=== PATIENT | male | born 1970 | race Caucasian/White ===

== ENCOUNTER 2017-03-08 09:21 | Inpatient (IN) ==
--- NOTE | 2017-03-07 21:09 | Discharge Summary ---
<Alicia Melissa - Last Filed: 03/08/17 09:55> Date of Encounter: 03/08/17 - Discharge Diagnosis (1) Arthritis of knee, left Priority: Primary Status: Acute (2) Status post total knee replacement, left Priority: Primary Status: Acute (3) DMII (diabetes mellitus, type 2) Priority: Secondary Status: Chronic Qualifiers: Diabetes mellitus complication status: without complication Diabetes mellitus prison insulin use: unspecified prison insulin use status Qualified Code(s): E11.9 - Type 2 diabetes mellitus without complications (4) HTN (hypertension) Priority: Secondary Status: Chronic Qualifiers: Hypertension type: essential hypertension Qualified Code(s): I10 - Essential (primary) hypertension (5) MAXIMINO on CPAP Priority: Secondary Status: Chronic (6) Obesity Priority: Secondary Status: Chronic Qualifiers: Obesity type: unspecified obesity type Obesity classification: unspecified obesity classification Serious obesity comorbidity presence: without serious comorbidity Qualified Code(s): E66.9 - Obesity, unspecified; Z68.43 - Body mass index (BMI) 50-59.9 , adult; Z68.43 - Body mass index (BMI) 50-59.9 , adult ; Z68.43 - Body mass index (BMI) 50-59.9 , adult; Z68.43 - Body mass index (BMI ) 50-59.9 , adult - Discharge Medications Home Medications: Aspirin Enteric Coated [Aspirin EC] 325 mg PO DAILY #21 tablet. 03/07/17 [Rx] OxyCODONE Immed Rel [Roxicodone 5 MG] 5 mg PO Q6HR PRN 7 Days #28 tablet [Rx] Albuterol Sulfate [Ventolin Hfa] 2 puff IH Q4H PRN 03/08/17 [History] Atenolol/Chlorthalidone [Tenoretic 50 Tablet] 1 tab PO DAILY 03/08/17 [History] Cyclobenzaprine [Flexeril] 10 mg PO TID PRN 03/08/17 [History] Dapagliflozin Propanediol [Farxiga] 5 mg PO DAILY 03/08/17 [History] Diclofenac Sodium [Voltaren] 75 mg PO BID PRN 03/08/17 [History] EPINEPHrine [Epipen] 0.3 mg IM DAILY PRN 03/08/17 [History] Fluticasone Propionate Nasal [Flonase] 1 spray NS DAILY 03/08/17 [History] Gabapentin [Neurontin] 1,600 mg PO HS 03/08/17 [History] Gabapentin [Neurontin] 800 mg PO 0900,1200 03/08/17 [History] Lisinopril [Zestril] 20 mg PO DAILY 03/08/17 [History] Loratadine [Claritin] 10 mg PO DAILY 03/08/17 [History] Metformin HCl [Glucophage] 1,000 mg PO BID 03/08/17 [History] Montelukast [Singulair] 10 mg PO DAILY 03/08/17 [History] Omeprazole [PriLOSEC] 40 mg PO DAILY 03/08/17 [History] Potassium Chloride [K-Tab ER] 10 meq PO DAILY 03/08/17 [History] Ranitidine HCl [Zantac] 300 mg PO DAILY 03/08/17 [History] Simvastatin [Zocor] 20 mg PO HS 03/08/17 [History] Testosterone Cypionate [Depo-Testosterone] 200 mg IM Q2W 03/08/17 [History] Allergies/Adverse Reactions: 3 Allergy/AdvReac Type Severity Reaction Status Date / Time venom-honey bee Allergy Anaphylaxis Verified 03/08/17 09:43 [bee venom (honey bee)] Primary care physician: Nicki Calabrese CNP - Patient Status Disposition: Home, Self-Care Condition: Good - Discharge Instructions Follow Up With: Gorge Bell MD [Partnered Physician] - 04/07/17 4:50 pm Alicia Melissa PAC [Physician Hoisting Machine Operator] - 03/18/17 10:15 am (Also, appointment on 03/26/17 @ 10:00 AM) Nicki Calabrese CNP [Primary Care Provider] - 04/26/17 9:00 am Sergio Welch MD [Partnered Physician] - 07/07/17 9:30 am - Hospital Course Hospital course: Mr. Boswell is a 46 year old male - Time Spent with Patient Total time spent providing and/or coordinating discharge services: <Gorge Bell - Last Filed: 03/09/17 06:39> Date of Encounter: 03/09/17 Time of Encounter: 06:39 - Discharge Diagnosis (1) Arthritis of knee, left Priority: Primary Status: Chronic (2) Status post total knee replacement, left Priority: Primary Status: Acute (3) DMII (diabetes mellitus, type 2) Priority: Secondary Status: Chronic Qualifiers: Diabetes mellitus complication status: without complication Diabetes mellitus prison insulin use: unspecified prison insulin use status Qualified Code(s): E11.9 - Type 2 diabetes mellitus without complications (4) HTN (hypertension) Priority: Secondary Status: Chronic Qualifiers: Hypertension type: essential hypertension Qualified Code(s): I10 - Essential (primary) hypertension (5) MAXIMINO on CPAP Priority: Secondary Status: Chronic (6) Obesity Priority: Secondary Status: Chronic Qualifiers: Obesity type: unspecified obesity type Obesity classification: adult class 3 (BMI >= 40) Serious obesity comorbidity presence: without serious comorbidity Body mass index: BMI 50.0-59.9 Qualified Code(s): E66.9 - Obesity, unspecified; Z68.43 - Body mass index (BMI) 50-59.9 , adult; Z68.43 - Body mass index (BMI) 50-59.9 , adult; Z68.43 - Body mass index (BMI) 50-59.9 , adult; Z68.43 - Body mass index (BMI) 50-59.9 , adult Primary care physician: Nicki Calabrese CNP - Patient Status Functional capacity at discharge: uses cane/walker Overall status at discharge: patient is progressing back to baseline - Hospital Course Hospital course: Mr. Boswell is a 46 year old male Status post left total knee replacement. The patient had an uneventful postoperative course. They received antibiotics and physical therapy and were discharged in stable condition. There will follow -up in the office in 2 weeks. - Time Spent with Patient Total time spent providing and/or coordinating discharge services:
[2017-03-08] MEDS ORDERED: Clindamycin 900 MG/50 ML 900 MG/50 ML IV.SOLN IVPB ONE (10:01)
[2017-03-08] MEDS ORDERED: Albuterol 2.5 MG/3 ML NEBULIZER IH ONE (10:01)
--- NOTE | 2017-03-08 10:07 | History & Physical Report ---
Date of Encounter: 03/08/17 Time of Encounter: 10:07 24 Hour HP Update - Instructions Instructions: If the History and Physical is less than 30 days old and was completed prior to A.M. admission and or procedure and has NOT been updated on calendar day of procedure please complete this update prior to performing procedure. - Update Patient reports changes in Medical Condition: No Changes in examination, assessment, or condition: No Changes in Medication: No Preop tests/diagnostics Reviewed: Yes Surgery Remains Indicated: Yes Consent for Planned Operative Procedure(s) Verified: Yes - Pre-Operative Checklist Preoperative Checklist Indicated: No Prophylactic Antibiotic Ordered: Yes Is VTE Prophylaxis Indicated?: Yes
[2017-03-08] MEDS ORDERED: Plasma-Lyte A (PH 7.4) 1,000 ML IVC SCH ×2 (10:15→11:30)
--- NOTE | 2017-03-08 11:01 | Anesthesia Evaluation PreOp ---
Date of Encounter: 03/08/17 Time of Encounter: 11:02 - Past History Planned Operation: Left total knee Cardiac History: HTN, Hyperlipidemia Pulmonary History: Asthma, MAXIMINO Dx GAME DESIGNER/CREATIVE DIRECTOR History: Other (cervical stenosis) Other Medical History: Diabetes Type II (oral medications only), Other (BMI 55) Anesthesia History: No Prior Anesthetic Complications Alcohol Use: none Drug use: none Medications and Allergies Aspirin Enteric Coated [Aspirin EC] 325 mg PO DAILY #21 tablet. 03/07/17 [Rx] OxyCODONE Immed Rel [Roxicodone 5 MG] 5 mg PO Q6HR PRN 7 Days #28 tablet [Rx] Albuterol Sulfate [Ventolin Hfa] 2 puff IH Q4H PRN 03/08/17 [History] Atenolol/Chlorthalidone [Tenoretic 50 Tablet] 1 tab PO DAILY 03/08/17 [History] Cyclobenzaprine [Flexeril] 10 mg PO TID PRN 03/08/17 [History] Dapagliflozin Propanediol [Farxiga] 5 mg PO DAILY 03/08/17 [History] Diclofenac Sodium [Voltaren] 75 mg PO BID PRN 03/08/17 [History] EPINEPHrine [Epipen] 0.3 mg IM DAILY PRN 03/08/17 [History] Fluticasone Propionate Nasal [Flonase] 1 spray NS DAILY 03/08/17 [History] Gabapentin [Neurontin] 1,600 mg PO HS 03/08/17 [History] Gabapentin [Neurontin] 800 mg PO 0900,1200 03/08/17 [History] Lisinopril [Zestril] 20 mg PO DAILY 03/08/17 [History] Loratadine [Claritin] 10 mg PO DAILY 03/08/17 [History] Metformin HCl [Glucophage] 1,000 mg PO BID 03/08/17 [History] Montelukast [Singulair] 10 mg PO DAILY 03/08/17 [History] Omeprazole [PriLOSEC] 40 mg PO DAILY 03/08/17 [History] Potassium Chloride [K-Tab ER] 10 meq PO DAILY 03/08/17 [History] Ranitidine HCl [Zantac] 300 mg PO DAILY 03/08/17 [History] Simvastatin [Zocor] 20 mg PO HS 03/08/17 [History] Testosterone Cypionate [Depo-Testosterone] 200 mg IM Q2W 03/08/17 [History] 3 Allergy/AdvReac Type Severity Reaction Status Date / Time venom-honey bee Allergy Anaphylaxis Verified 03/08/17 09:43 [bee venom (honey bee)] - Meds/Allergy Pre-op Review Medications Reviewed: Yes Allergies Reviewed: Yes Beta Blockers on Current Med List: Yes (atenolol) If Beta Blockers taken, Date/Time (Last Dose taken): 03-08-17 atenolol 10 am Anesthesia Results - Labs Laboratory Tests 02/26/17 02/26/17 02/26/17 11:12 11:12 11:12 WBC 11.8 H Hgb 16.3 Hct 49.3 Plt Count 245 PT 10.4 INR 1.0 APTT 27.5 Sodium 142 Potassium 3.0 L Chloride 105 Carbon Dioxide 24 BUN 10 Creatinine 0.83 Est GFR ( Amer) > 60 Est GFR (Non-Af Amer) > 60 BUN/Creatinine Ratio 12 Est Mean Plasma Glucose Hemoglobin A1c 02/26/17 11:12 WBC Hgb Hct Plt Count PT INR APTT Sodium Potassium Chloride Carbon Dioxide BUN Creatinine Est GFR ( Amer) Est GFR (Non-Af Amer) BUN/Creatinine Ratio Est Mean Plasma Glucose 143 Hemoglobin A1c 6.6 H - Imaging EKG: report reviewed, image reviewed (NSR) Anesthesia Exam Last Vital Signs Temp 98.0 F 03/08/17 09:42 Pulse 77 03/08/17 09:42 Resp 18 03/08/17 10:47 BP 141/66 03/08/17 10:47 Pulse Ox 96 03/08/17 10:47 Weight: 161 kg NPO (# of Hours): > 8 hrs - HEENT Pupil (Motor): Pupils equal, EOMI Mallampati: IV (good TM distance) Teeth: Normal Oral Opening: Greater than 3 - GAME DESIGNER/CREATIVE DIRECTOR LOC: Oriented GAME DESIGNER/CREATIVE DIRECTOR Motor: Normal RUE, Normal LUE, Normal RLE, Normal LLE, Normal Face - Cardiac Rhythm: Regular Murmur: None - Pulmonary Breath Sounds: bilateral Clear Respiratory Effort: Symmetrical Anesthesia Assess/Plan ASA Score: 3 Modified Jhonatan Scale for Level of Consciousness: Cooperative, oriented, and tranquil Anesthetic Plan: General, Regional, Precautions (C-MAC in room) Monitoring Plan: Standard Monitors Recovery Plan: PACU
[2017-03-08] MEDS ORDERED: CeFAZolin Pre 3,000 MG/100 ML 3,000 MG/100 ML BAG IVPB ONE (11:22)
[2017-03-08] MEDS ORDERED: ROPIVACAINE HCL/PF 0.5% 30 ML VIAL ONE (11:24)
[2017-03-08] MEDS ORDERED: Bupivacaine/Clonidine Syringe 1 EACH SYRINGE ONE (11:27)
[2017-03-08] MEDS ORDERED: Ethanol\\Acetic Acid\\Na Ace\\Ben 1,000 ML IRRIG.SOLN IR ONE (11:33)
--- NOTE | 2017-03-08 11:39 | Anesthesia Procedures ---
Date of Encounter: 03/08/17 Time of Encounter: 11:30 Procedures: Anesthesia - Nerve Block Procedure Date: 03/08/17 Time: 11:30 Pre-op Diagnosis: left knee OA Surgical Procedure: left TKA Checklist: Correct Patient Identifier, Correct procedure, History checked Correct side: Left Blood Thinner: No Monitor Applied: EKG, BP, Pulse Oximetry Supplemental Oxygen via Nasal Cannula (L/min): 2 Sedation: Versed (mg): 2 Sedation: Fentanyl (mcg): 100 Indication: Post Op Analgesia Pre-op Neuro Deficits: No Block Type: Femoral, Other (ipack 20mL) Catheter placed: No Sterile Technique: Yes Ultrasound used: Yes Anatomy identified: Yes Visual spread of Local: Yes Neuro Stimulation: Yes (femoral only) Nerve Stimulator Range: 0.2 - 0.4 mA Blood on Needle Aspiration: No Smooth Injection of Local: Yes Pain with Injection of Local: No Prep: Chlorhexadine Needle: 22 x 50 mm Stimuplex, 21 x 100 mm Stimuplex Local: 0.25% Bupivicaine w/Clonidine 20 mcg/cc, Ropivacaine Volume (cc): 50 Number of Attempts: 1 Complications: None/effective block Vitals: Vital Signs/O2 Sat/Glucose, Most Recent Temp Pulse Resp BP Pulse Ox 98.0 F 73 16 131/78 97 03/08/17 09:42 03/08/17 11:36 03/08/17 11:36 03/08/17 11:36 03/08/17 11:36 Blood Glucose* 177
[2017-03-08] MEDS ORDERED: Ondansetron 4 MG/2 ML VIAL IVP PRN ×2 (11:40→14:16)
[2017-03-08] MEDS ORDERED: *HR* HYDROmorphone (PF) 1 MG/ML SYRINGE IVP PRN ×2 (11:40→14:16)
[2017-03-08] MEDS ORDERED: *HR* Labetalol 20 MG/4 ML SYRINGE IVP PRN (11:40)
[2017-03-08] MEDS ORDERED: *HR* FentaNYL (PF) 100 MCG/2 ML VIAL ONE (11:59)
[2017-03-08] MEDS ORDERED: Lidocaine -MPF 2% 2 ML VIAL ONE (11:59)
[2017-03-08] MEDS ORDERED: *HR* Midazolam HCl 2 MG/2 ML VIAL ONE (11:59)
[2017-03-08] MEDS ORDERED: *HR* Propofol 200 MG/20 ML VIAL IVP ONE (11:59)
[2017-03-08] MEDS ORDERED: *HR* Succinylcholine 200 MG/10 ML VIAL IVP ONE (12:00)
[2017-03-08] MEDS ORDERED: Ketamine *HR* 500 MG/10 ML MDV ONE (12:00)
[2017-03-08] MEDS ORDERED: Lidocaine -MPF 4% 5 ML AMPUL ONE (12:01)
[2017-03-08] MEDS ORDERED: Dexamethasone 4 MG/ML VIAL ONE (12:11)
[2017-03-08] MEDS ORDERED: Ondansetron 4 MG/2 ML VIAL ONE (12:11)
[2017-03-08] MEDS ORDERED: Ketorolac 30 MG/ML VIAL ONE (12:12)
[2017-03-08] MEDS ORDERED: Acetaminophen IV 1,000 MG/100 ML INFUS..BTL ONE (12:14)
[2017-03-08] MEDS ORDERED: *HR* Magnesium Sulfate 1 GM/2 ML VIAL ONE (12:15)
[2017-03-08] MEDS ORDERED: *HR* HYDROmorphone 2 MG/ML SYRINGE ONE (12:25)
--- NOTE | 2017-03-08 13:03 | Orthopedic Operative Note ---
Date of procedure: 03/08/17 Pre-op diagnosis: Left knee arthritis Post-op diagnosis: same Procedure: Procedure: Left Total knee replacement Estimated blood loss: 200 cc Hardware: Metal and polyethylene replacement: Biomet Femur: 75 [id number] stem Tibia: 79, 14 x 80 stem Aydee insert: 10 Patella: 37 Exam Under anesthesia: Loss full extension 10 degrees anterior laxity Procedural Notes: Grade 4 arthritic changes medial compartment and patellofemoral joint, attenuated ACL graft Operative procedure: The patient was brought to the operating room and placed on the operating room table. After general anesthesia was administered the operative knee was examined. Findings were noted in the exam under anesthesia. The operative extremity was prepped and draped in sterile surgical fashion. The patient received IV antibiotics prior to skin incision. A standard midline incision was made centered over the patella. The incision was made through the skin and subcutaneous tissue. A medial parapatellar tendon approach was performed. Care was taken to preserve tissue along the medial aspect of the patella. And to protect the patella tendon. The deep MCL was released off the medial tibia. The infra patella fat pad was excised. Knee was brought into flexion. Patient noted to have grade 4 arthritic changes medial compartment and patellofemoral joint. The entry hole was made for the intramedullary femoral guide. The guide was seated in 6 degrees of valgus. Anterior cut was made followed by the distal cut. The remaining ACL graft and PCL the medial and the lateral menisci were excised. The tibia was subluxed forward. The entry hole was made for the intramedullary tibial guide. Guide was seated to resect 2 mm off the more abnormal side. The knee was brought into flexion the distal femur was sized to a 75 The femur was first reamed to a 16 x 120 The femoral guide was seated, the anterior cut was made followed by the posterior condylar cut, followed by the chamfer cuts. The finishing guide was seated the box cut was made. Trial had good fit and fixation The tibia was sized to a an 79 The tibia was first reamed 14 by 80 Trial reduction revealed full extension no varus valgus instability with the appropriate 10 insert. The patella was everted and cut was made at the level of the insertion of the quadriceps and patella tendon. The patella was sized to a 37 the guide was seated and the lug holes are drilled. Trial reduction revealed excellent patella tracking. All trial components were removed all bony surfaces were irrigated. Components were assembled on the back table. The tibia was cemented first followed by the femur. The 10 Aydee was seated and secured. The knee was brought into full extension. The patella was cemented and held in place with the patellar holding clamp. After the cement had hardened, the knee sat for 2 minutes with a Betadine saline solution. The knee was then irrigated out with 2 L of pulse irrigation. The PA close the knee. The extensor mechanism was closed with #2 FiberWire suture and #2 PDS suture. The subcutaneous tissue was then irrigated and closed deep with #1 PDS suture superficially with 0 PDS suture and skin was closed with skin armand The patient was then placed in a sterile dressing and a postoperative brace extubated and transferred to recovery room in stable condition. Anesthesia: SANJANA Surgeon: Gorge Bell Condition: stable Disposition: PACU
[2017-03-08 14:12] LABS: Hematocrit 44.6 % (37.5-50.1); Hemoglobin 14.4 g/dL (12.9-16.9)
--- NOTE | 2017-03-08 14:13 | Anesthesia Evaluation Post Op ---
Date of Encounter: 03/08/17 Time of Encounter: 14:13 - Vital Signs Vital Signs: Last Vital Signs Temp 98.0 F 03/08/17 13:43 Pulse 71 03/08/17 14:03 Resp 13 03/08/17 14:03 BP 109/70 03/08/17 14:03 Pulse Ox 96 03/08/17 14:03 - Lungs Lungs: Clear Ascult./Percussion - Airway Airway: Non-obstructed - Cardiovascular Regular Rate - Mental Status Mental Status: Alert & Oriented, Answers Appropriately - Pain Pain Scale: 2 - Nausea Vomiting Nausea Vomiting: Not Present - Hydration Hydration: NPO - Discharge PostOp Status: Transfer Patient to floor
[2017-03-08] MEDS ORDERED: Ringers Solution, Lactated 1,000 ML IVC SCH (14:16)
[2017-03-08] MEDS ORDERED: *HR* EPINEPHrine 0.3 MG/0.3 ML (PEN) IM PRN (14:16)
[2017-03-08] MEDS ORDERED: Dextrose Gel 15 GM PO PRN ×2 (14:16)
[2017-03-08] MEDS ORDERED: *HR* Dextrose 50 % in Water (Syg) 50 ML SYRINGE IVP PRN (14:16)
[2017-03-08] MEDS ORDERED: *HR* OxyCODONE Immed Rel 5 MG TABLET PO PRN (14:16)
[2017-03-08] MEDS ORDERED: Naloxone 0.4 MG/ML INJ IVP PRN (14:16)
[2017-03-08] MEDS ORDERED: D5% in Water 1,000 ML IVC PRN (14:16)
[2017-03-08] MEDS: Insulin LISPRO 300 UNITS/3 ML VIAL SQ SCH ×2 (14:41→16:31)
[2017-03-08] MEDS: *HR* OxyCODONE Immed Rel 5 MG TABLET PO PRN ×3 (15:00→23:51)
[2017-03-08] MEDS: Gabapentin 400 MG CAPSULE PO SCH (15:37)
[2017-03-08] MEDS: *HR* Enoxaparin 30 MG/0.3 ML SYRINGE SQ SCH (16:28)
[2017-03-08] MEDS ORDERED: *HR* Enoxaparin 30 MG/0.3 ML SYRINGE SQ SCH (18:00)
[2017-03-08] MEDS: ceFAZolin 3,000 MG in D5% in Water 100 ML IVPB SCH ×2 (18:12→23:52)
[2017-03-08] MEDS: *HR* Metformin 500 MG TABLET PO SCH (19:44)
[2017-03-08] MEDS ORDERED: Insulin LISPRO 300 UNITS/3 ML VIAL SQ SCH (21:00)
[2017-03-08] MEDS ORDERED: MOM Conc 10 ML UD.LIQ PO PRN (21:00)
[2017-03-08] MEDS ORDERED: Gabapentin 400 MG CAPSULE PO SCH (21:00)
[2017-03-08] MEDS ORDERED: Temazepam 15 MG CAPSULE PO PRN (21:00)
[2017-03-08] MEDS ORDERED: Sennosides 8.6 MG TABLET PO PRN (21:00)
[2017-03-09] MEDS: *HR* Enoxaparin 30 MG/0.3 ML SYRINGE SQ SCH (04:53)
[2017-03-09] MEDS: *HR* OxyCODONE Immed Rel 5 MG TABLET PO PRN ×2 (04:53→09:05)
[2017-03-09 07:02] LABS: Hematocrit 42.1 % (37.5-50.1); Hemoglobin 13.2 g/dL (12.9-16.9)
[2017-03-09 07:17] LABS: BUN/Creatinine Ratio 20 (6-26); Blood Urea Nitrogen 17 mg/dL (8-26); Calcium 8.5 mg/dL (8.6-10.8); Carbon Dioxide 27 mEq/L (19-29); Chloride 100 mEq/L (98-109); Glucose 189 mg/dL (70-99); Osmolality,Calculated 291 (280-300); Potassium 3.6 mEq/L (3.5-4.5); Sodium 137 mEq/L (136-145); eGFR For African Americans > 60 (> 60); eGFR For Non-African Americans > 60 (> 60)
[2017-03-09 08:12] VITALS: BP 105/68
[2017-03-09] MEDS: Gabapentin 400 MG CAPSULE PO SCH (08:49)
[2017-03-09] MEDS: *HR* Metformin 500 MG TABLET PO SCH (08:50)
[2017-03-09] MEDS: Insulin LISPRO 300 UNITS/3 ML VIAL SQ SCH (08:50)
[2017-03-09] MEDS ORDERED: ATENOLOL PO SCH (09:00)
[2017-03-09] MEDS ORDERED: Loratadine 10 MG TABLET PO SCH (09:00)
[2017-03-09] MEDS ORDERED: CHLORTHALIDONE PO SCH (09:00)
[2017-03-09] MEDS ORDERED: Lisinopril 20 MG TABLET PO SCH (09:00)
[2017-03-09] MEDS ORDERED: Fluticasone Propionate Nasal 50 MCG/SPRAY BOTTLE NS SCH (09:00)
[2017-03-09] MEDS ORDERED: FLUARIX QUAD 2017-18 36MOS UP/PF 0.5 ML SYRINGE IM ONE (10:15)
== END 2017-03-09 11:55 | disposition home or self-care (01) | DRG 470 ==
LOC: SAMDAY 09:21 → 3NENU 14:25
PROVIDERS: ADMIT Orthopaedic Surgery; ATTEND Orthopaedic Surgery